=== PATIENT | female | born 1940 | race Caucasian/White ===

== ENCOUNTER 2019-02-24 20:40 | Emergency (ER) | payer SELFPAY ==
[~2019-02-24] VITALS: Ht 154.9 cm; Wt 59.1 kg
[2019-02-24 22:47] LABS: ANION GAP 11 mmol/L (8-16); BASOPHILS % (AUTO) 0.5 % (0.0-2.0); CALCIUM, TOTAL 8.8 mg/dL (8.8-10.5); CARBON DIOXIDE 26 mmol/L (22-29); CHLORIDE 105 mmol/L (98-107); CREATININE 0.79 mg/dL (0.60-1.30); EOSINOPHILS % (AUTO) 1.9 % (1.0-6.0); GLUCOSE,RANDOM 105 mg/dL (70-110); HEMATOCRIT 31.6 % (36-46); HEMOGLOBIN 10.2 g/dL (12.0-16.0); LYMPHOCYTES # (AUTO) 1.3 K/uL (1.0-4.8); LYMPHOCYTES % (AUTO) 21.1 % (22.0-44.0); MEAN CORPUSCULAR HEMOGLOBIN 25.6 pg (26.0-34.0); MEAN CORPUSCULAR HGB CONC 32.2 G/dL (31.0-37.0); MEAN CORPUSCULAR VOLUME 79 fL (80-100); MONOCYTES # (AUTO) 0.6 K/uL (0.1-1.0); MONOCYTES % (AUTO) 9.9 % (2.0-9.0); NEUTROPHILS # (AUTO) 4.3 K/uL (1.8-7.7); NEUTROPHILS % (AUTO) 66.6 % (40.0-70.0); PLATELET COUNT (AUTO) 206 K/uL (150-450); POTASSIUM 3.8 mmol/L (3.5-5.1); RED BLOOD CELL COUNT(AUTO) 3.98 MIL/uL (4.00-5.20); RED CELL DISTRIBUTION WIDTH 15.2 % (11.5-14.5); SODIUM SERUM 142 mmol/L (136-145); UREA NITROGEN, BLOOD 19 mg/dL (7-18)
[2019-02-24 22:52] LABS: ALANINE AMINOTRANSFERASE 10 U/L (12-78); ALKALINE PHOSPHATASE 114 U/L (46-116); ASPARTATE AMINOTRANSFERASE 12 U/L (15-37); BILIRUBIN,TOTAL 0.3 mg/dL (0.1-1.0); TOTAL PROTEIN, SERUM 6.9 g/dL (6.4-8.2)
[2019-02-24 22:53] LABS: GLOMERULAR FILTR. RATE CALC > 60 mL/min (>60)
[2019-02-24 22:58] LABS: D-DIMER 0.98 mg/L FEU (0.00-0.50); PROTHROMBIN TIME 10.4 SEC (9.4-11.6)
[2019-02-24] MEDS ORDERED: ACETAMINOPHEN 325 MG TABLET PO ONE (23:00)
[2019-02-24 23:30] LABS: B-TYPE NATRIURETIC PEPTIDE 290 pg/mL (0-100)
[2019-02-25] MEDS ORDERED: FUROSEMIDE 20 MG TABLET PO ONE (02:30)
[2019-02-25] MEDS ORDERED: IOVERSOL 350 MG/ML 100 ML VIAL ONE (02:30)
[2019-02-25] MEDS ORDERED: CloNIDine HCL 0.2 MG TABLET PO ONE (02:30)
[2019-02-25 04:40] VITALS: BP 155/98
== END 2019-02-25 05:06 | disposition home or self-care (01) ==
LOC: EMS 20:41
DX: I11.0 Hypertensive heart disease with heart failure (principal); I50.9 Heart failure, unspecified; R60.0 Localized edema
CPT/HCPCS: 36415; 71045; 71275; 80053; 83880; 84484; 85025; 85379; 85610; 85730; 93005; 93970; 99284; Q9967